=== PATIENT | male | born 1950 | race African-American/Black ===

== ENCOUNTER → 2017-02-27 | Outpatient (CLI) | payer OTHER ==
[2014-04-27 11:25] VITALS: BP 173/77
[~2017-02-27] MED LIST: AMLO10TA4 PO; ATOR10TA PO; FLUT1DIS3 IH; GABA-585 PO; ISOS30TA PO; LEVO5TAB2 PO; LISI40TA PO; MELO15TA23 PO; METO100T11 PO; MONT10TA6 PO; NIAC500T PO; OMEP40CA5 PO; ROPI0.5T PO
--- NOTE | 2017-02-27 12:09 | RAD ---
Indication reticula atrophy. Back pain. Duration of symptoms several months. AP oblique and lateral views of the lumbar spine were obtained as well as a coned view targeted to the lumbosacral junction. Note is made of a previous examination 07/08/2013. Pars defects at L5 with grade 1 anterior spondylolisthesis of L5 relative to S1 is noted. In this regard the appearance is similar to the previous exam. There is disc space narrowing at L2-3 with associated degenerative endplate changes and some vacuum disc phenomenon. Some disc narrowing is also seen at L4-5. Vertebral height is well maintained. Small osteophytes are seen at several levels. An acute finding is not seen. IMPRESSION: Pars defects at L5 with associated spondylolisthesis. Degenerative changes predominantly at L2-3 and L45. Degenerative changes have progressed relative to the previous plain film exam. No acute finding seen
--- NOTE | 2017-02-27 14:14 | RAD ---
Indication pain. No history of injury. An AP view of the pelvis was obtained as well as frog-leg views of both hips. Bony mineralization appears normal. There are degenerative changes involving both hips right greater than left. An acute bony finding is not seen. IMPRESSION: Degenerative changes involving both hips right greater than left
== END | disposition home or self-care (01) ==
LOC: DXRADRC 11:22
PROVIDERS: ATTEND Physician Assistant
DX: M16.0 Bilateral primary osteoarthritis of hip (principal); M43.16 Spondylolisthesis, lumbar region; M54.9 Dorsalgia, unspecified
CPT/HCPCS: 72110; 73521

== ENCOUNTER → 2019-02-08 | Outpatient (CLI) | payer MEDICAID ==
[2014-04-27 11:25] VITALS: BP 173/77
[~2019-02-08] MED LIST changes: +METO-247 PO; -METO100T11 PO; -MONT10TA6 PO; +MONT10TA80 PO
--- NOTE | 2019-02-08 16:43 | RAD ---
Right hand, 2 views, 02/08/2019: HISTORY: Hand pain There is severe degenerative change at the first CMC joint with subchondral cyst formation, spurring and periarticular calcifications. There are moderate degenerative changes at the first through third MCP joints. There are mild degenerative changes at scattered interphalangeal joints. No fracture or dislocation is identified. IMPRESSION: 1. Severe degenerative change at the first CMC joint. 2. Mild to moderate additional scattered degenerative changes as described above. Left hand, 2 views, 02/08/2019: There is moderate degenerative change at the first, second and third MCP joints. There are mild degenerative changes at scattered interphalangeal joints and the first CMC joint. No fracture or dislocation is identified. IMPRESSION: Mild to moderate scattered degenerative changes as described above. Electronically signed by: Antonio Steward MD (02/08/2019 4:40 PM) [facility]
--- NOTE | 2019-02-08 16:45 | RAD ---
Abdomen, 2 views, 02/08/2019: HISTORY: Abdominal pain Gas is present in scattered loops of large and small bowel in a nonspecific pattern. There is a moderate amount of stool in the right colon. No free air is seen in the abdomen. There is no evidence organomegaly. Surgical clips are present in the right abdomen. There are mild scattered degenerative changes in the spine. 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 IMPRESSION: No acute abdominal abnormality is detected. Electronically signed by: Antonio Steward MD (02/08/2019 4:42 PM) [facility]
== END | disposition home or self-care (01) ==
LOC: PMG 12:36
PROVIDERS: ATTEND Physician Assistant
DX: M16.0 Bilateral primary osteoarthritis of hip (principal); M19.041 Primary osteoarthritis, right hand; M19.042 Primary osteoarthritis, left hand; M18.12 Unilateral primary osteoarthritis of first carpometacarpal joint, left hand; M47.819 Spondylosis without myelopathy or radiculopathy, site unspecified
CPT/HCPCS: 73120; 74019

== ENCOUNTER → 2019-06-29 | Outpatient (CLI) | payer MEDICAID ==
[2014-04-27 11:25] VITALS: BP 173/77
[~2019-06-29] MED LIST changes: +OMEP40CA45 PO; -OMEP40CA5 PO
--- NOTE | 2019-06-29 12:14 | RAD ---
EXAM: Chest, 2 views. HISTORY: Chest pain. COMPARISON: None. FINDINGS: 2 views of the chest are obtained. There is no infiltrate, pleural effusion or pneumothorax. The heart is normal in size. There is evidence of prior median sternotomy. There are few calcified granulomas. There is suspected linear atelectasis or scarring within the lingula and right middle lobe. IMPRESSION: No acute pulmonary finding. Electronically signed by: Pati Holguin MD (06/29/2019 12:10 PM) [place] [id number]
== END | disposition home or self-care (01) ==
LOC: PMG 10:32
PROVIDERS: ATTEND Physician Assistant
DX: J84.10 Pulmonary fibrosis, unspecified (principal)
CPT/HCPCS: 71046

== ENCOUNTER → 2020-02-03 | Outpatient (CLI) | payer MEDICAID ==
[2014-04-27 11:25] VITALS: BP 173/77
[~2020-02-03] MED LIST changes: +IOHEXOL 240 MG/ML 50ML VIAL. ONE; +IOHEXOL 240 MG/ML 50ML VIAL. PO ONE; +IOHEXOL 300 MG/ML 75 ML VIAL. IV ONE
[2020-02-03 13:28] LABS: BASO % 1 % (0-3); EOS # 0.2 x10^3/uL (0.0-0.7); EOS % 3 % (0-3); HEMATOCRIT 38.5 % (39.0-53.0); HEMOGLOBIN 12.6 g/dL (13.0-17.5); LYMPH # 2.1 x10^3/uL (1.0-4.8); LYMPH % 37 % (24-48); MEAN CORPUSCULAR HEMOGLOBIN 29 pg (25-35); MEAN CORPUSCULAR HGB CONC 33 g/dL (31-37); MEAN CORPUSCULAR VOLUME 88 fL (79-100); MONO # 0.5 x10^3/uL (0.0-1.1); MONO % 9 % (0-9); NEUT % 51 % (31-73); PLATELET COUNT 287 x10^3/uL (140-400); RED BLOOD COUNT 4.37 x10^6/uL (4.30-5.70); RED CELL DISTRIBUTION WIDTH 14.8 % (11.5-14.5); WHITE BLOOD COUNT 5.8 x10^3/uL (4.0-11.0)
[2020-02-03 13:36] LABS: ALBUMIN 3.9 g/dL (3.4-5.0); ALBUMIN/GLOBULIN RATIO 1.1 (1.0-1.7); CALCIUM 8.8 mg/dL (8.5-10.1); CREATININE 1.1 mg/dL (0.7-1.3); GFR 80.3; POTASSIUM 4.2 mmol/L (3.5-5.1); TOTAL BILIRUBIN 0.6 mg/dL (0.2-1.0); TOTAL PROTEIN 7.6 g/dL (6.4-8.2)
[2020-02-03 14:42] LABS: C REACTIVE PROTEIN 22.4 mg/L (0-3.3)
--- NOTE | 2020-02-03 15:09 | RAD ---
CT scan of the abdomen and pelvis with contrast 02/03/2020 CLINICAL HISTORY: Abdominal pain. TECHNIQUE: After the oral and intravenous administration of contrast, contiguous, 5 mm axial sections were obtained through the abdomen and pelvis. 75 cc of Omnipaque 350 were administered intravenously this examination. One or more of the following individualized dose reduction techniques were utilized for this study: 1. Automated exposure control. 2. Adjustment of the mA and/or kV according to patient size. 3. Use of iterative reconstruction technique. FINDINGS: Comparison study is dated 05/15/2016. Images through the lung bases demonstrate minimal dependent subsegmental atelectasis bilaterally. A 5 mm calcified granuloma is seen involving the lingula. Images through the lung bases demonstrate minimal dependent subsegmental atelectasis bilaterally. The liver, spleen, pancreas, adrenal glands and kidneys are within normal limits. Atherosclerotic calcification of the abdominal aorta is seen. The abdominal aorta tapers normally. Surgical clips are seen within the gallbladder fossa consistent with a cholecystectomy. No free fluid or free air is seen within the abdomen. There is no evidence of bowel obstruction. The appendix is well-visualized and is within normal limits. Images through the pelvis demonstrate the urinary bladder distended with urine. The prostate gland is enlarged likely related to BPH. Scattered diverticula are seen involving the sigmoid colon. No inflammatory changes are seen in the adjacent fat. No free fluid is seen. Very mild S-shaped curvature of the thoracolumbar spine is noted. Degenerative changes are seen involving lower thoracic and throughout the lumbar spine along with both hips. Bilateral spondylolysis is seen at L5. Grade 1 spondylolisthesis of L5 in relation to S1 is noted. IMPRESSION: No acute abnormality is seen. Electronically signed by: Quang Pisano MD (02/03/2020 3:06 PM) [id number]
== END ==
LOC: CT 12:31
PROVIDERS: ATTEND Physician Assistant
DX: K57.30 Diverticulosis of large intestine without perforation or abscess without bleeding (principal); I70.0 Atherosclerosis of aorta; J98.11 Atelectasis; M47.816 Spondylosis without myelopathy or radiculopathy, lumbar region; M43.17 Spondylolisthesis, lumbosacral region; N40.0 Benign prostatic hyperplasia without lower urinary tract symptoms; Z90.49 Acquired absence of other specified parts of digestive tract
CPT/HCPCS: 36415; 74177; 80053; 82150; 83690; 85025; 86140; Q9966; Q9967

== ENCOUNTER 2020-06-26 12:00 | Emergency (ER) | payer MEDICAID ==
[~2020-06-26] VITALS: Ht 165.1 cm; Wt 92.0 kg
[~2020-06-26 12:00] MED LIST changes: -IOHEXOL 240 MG/ML 50ML VIAL. ONE; -IOHEXOL 240 MG/ML 50ML VIAL. PO ONE; -IOHEXOL 300 MG/ML 75 ML VIAL. IV ONE
[2020-06-26] MEDS ORDERED: ACETAMINOPHEN 500 MG TABLET PO ONE ×2 (12:23→12:30)
[2020-06-26] MEDS ORDERED: IV NORMAL SALINE 1,000ML 1,000 ML IV ONE (12:30)
[2020-06-26] MEDS ORDERED: ONDANSETRON PF 4 MG/2 ML VIAL. IVP ONE (12:30)
--- NOTE | 2020-06-26 12:55 | RAD ---
AP chest. HISTORY: Short of breath AP view was taken of the chest. There are bilateral hazy infiltrates. Patient's had previous sternotomy. The heart is not enlarged. There is no pleural effusion. IMPRESSION: 1. Bilateral hazy mainly basilar infiltrates. Electronically signed by: Panda Gilmore MD (06/26/2020 12:52 PM) [id number]
--- NOTE | 2020-06-26 13:07 | PHYS DOC ---
Past History Past Medical History: Other Past Surgical History: Other Smoking: Quit Greater Than 1 Year Alcohol Use: None Drug Use: None General Adult EDM: Chief Complaint: SHORTNESS OF BREATH HPI: HPI: 70-year-old male presents with cough and shortness of breath. Patient has had the symptoms for the last 6 days. It has been getting worse last couple days. He went to see his primary care physician upstairs in this building and he was found to have temperature and sent to the emergency room. The patient has been trying to stay home most of the time, but has grandchildren who have not altered her lifestyle. No confirmed COVID-19 exposures. Patient has a history of heart issues. He had open heart surgery of some kind. He does not know what medications he is on. No COPD diagnosis. He does not normally use oxygen. On arrival his oxygen saturation was in the low 80s. Review of Systems: Review of Systems: Constitutional: Denies fever or chills Eyes: Denies change in visual acuity HENT: Denies nasal congestion or sore throat Respiratory: Cough with shortness of breath Cardiovascular: Denies chest pain or edema GI: Denies abdominal pain, nausea, vomiting, bloody stools or diarrhea : Denies dysuria Musculoskeletal: Denies back pain or joint pain Integument: Denies rash Neurologic: Denies headache, focal weakness or sensory changes Endocrine: Denies polyuria or polydipsia Lymphatic: Denies swollen glands Psychiatric: Denies depression or anxiety Current Medications: Current Meds: Current Medications Medications (Trade) Dose Ordered Sig/[facility] Start Time Stop Time Status Last Admin Dose Admin Acetaminophen (Tylenol) 1,000 mg 1X ONCE 06/26/20 12:30 06/26/20 12:41 DC Ondansetron HCl (Zofran) 4 mg 1X ONCE 06/26/20 12:30 06/26/20 12:41 DC Sodium Chloride 1,000 ml @ 1,000 mls/hr 1X ONCE 06/26/20 12:30 06/26/20 13:29 Allergies: Allergies: Allergies Coded Allergies Type Severity Reaction Last Updated Verified No Known Drug Allergies 02/03/20 No Physical Exam: PE: Constitutional: Well developed, well nourished, mild acute distress. [] HENT: Normocephalic, atraumatic, bilateral external ears normal, oropharynx moist, no oral exudates, nose normal. [] Eyes: PERRLA, EOMI, conjunctiva normal, no discharge. [] Neck: Normal range of motion, no tenderness, supple, no stridor. [] Cardiovascular: Heart rate regular rhythm, no murmur [] Lungs & Thorax: Bilateral breath sounds coarse. [] Abdomen: Bowel sounds normal, soft, no tenderness, no masses, no pulsatile masses. [] Skin: Warm, dry, no erythema, no rash. [] Back: No tenderness, no CVA tenderness. [] Extremities: No tenderness, no cyanosis, no clubbing, ROM intact, no edema. [] Neurologic: Alert and oriented X 3, normal motor function, normal sensory function, no focal deficits noted. [] Psychologic: Affect normal, judgement normal, mood normal. [] EKG: EKG: Sinus rhythm, rate 94, leftward axis, no ST elevations or depressions, inverted T waves is V2 through V6. [] Radiology/Procedures: Radiology/Procedures: [] Impressions: AP chest. HISTORY: Short of breath AP view was taken of the chest. There are bilateral hazy infiltrates. Patient's had previous sternotomy. The heart is not enlarged. There is no pleural effusion. IMPRESSION: 1. Bilateral hazy mainly basilar infiltrates. Electronically signed by: Lucas Gilmore MD (06/26/2020 12:52 PM) [id number] DICTATED AND SIGNED BY: LUCAS GILMORE MD DATE: 06/26/20 1252 CC: FANI MADDOX DO; MICHAEL BYRNE PA ~ Heart Score: Risk Factors: Risk Factors: DM, Current or recent (<one month) smoker, HTN, HLP, family history of CAD, obesity. Risk Scores: Score 0 - 3: 2.5% MACE over next 6 weeks - Discharge Home Score 4 - 6: 20.3% MACE over next 6 weeks - Admit for Clinical Observation Score 7 - 10: 72.7% MACE over next 6 weeks - Early Invasive Strategies Course & Med Decision Making: Course & Med Decision Making Pertinent Labs and Imaging studies reviewed. (See chart for details) On arrival the patient's temperature is 102.4. We gave him a gram of Tylenol. We will also start him on 1 L of fluids as COVID-19 seems likely. The 30 mL/kg of ideal body weight is not indicated for this scenario. His chest x-ray suggests bilateral pneumonia. I will treat him with Rocephin and azithromycin. The patient will need admitted to the hospital. I spoke with Dr. Aguiar, our hospitalist and he believes the patient will be better served and higher level of care. I spoke with the hospitalist, Dr. Alfaro at [facility] and he has accepted the patient for transfer and admission. He will go to the COVID-19 floor. 52 minutes of critical care time was spent on this patient exclusive of other billable procedures. [] Dragon Disclaimer: Dragon Disclaimer: This electronic medical record was generated, in whole or in part, using a voice recognition dictation system. Departure Departure: Impression: Primary Impression: Suspected 2019 novel coronavirus infection Additional Impression: Hypoxia Disposition: 02 DC/TRF OTHER SHORT TERM HOS Condition: GUARDED Referrals: MICHAEL BYRNE (PCP) Sepsis Assessment: Date and Time of Assessment Date: Jun 26, 2020 Time: 12:10 Vital Signs Vital Signs Vital Signs Date Time Temp Pulse Resp B/P (MAP) Pulse Ox O2 Delivery O2 Flow Rate FiO2 06/26/20 13:44 88 24 127/59 (81) 97 Nasal Cannula 5.0 06/26/20 12:54 102.4 Respirations Respiratory Effort: Shortness of air Respiratory Pattern: Tachypnea Cardiovascular Pulse Rhythm: Regular HEART: S1 and S2 normal Lung Sounds Breath Sounds: Coarse Capillary Refill Capillary Refill: Rt Hand < 3 seconds Peripheral Pulse Pulse Location: Monitor Pulse Strength: Normal (2+) Pulse Assessment Method: Monitor Integumentary Skin: Warm Skin Moisture: Dry Skin Turgor: Normal Skin Color: no erythema Fingernail Color: WNL Sepsis Assessment: Date and Time of Assessment Date: Jun 26, 2020 Time: 14:06 Vital Signs Vital Signs Vital Signs Date Time Temp Pulse Resp B/P (MAP) Pulse Ox O2 Delivery O2 Flow Rate FiO2 06/26/20 13:44 88 24 127/59 (81) 97 Nasal Cannula 5.0 06/26/20 12:54 102.4 Respirations Respiratory Effort: Shortness of air Respiratory Pattern: Normal Cardiovascular Pulse Rhythm: Regular HEART: S1 and S2 normal Lung Sounds Breath Sounds: Coarse Capillary Refill Capillary Refill: Rt Hand < 3 seconds Peripheral Pulse Pulse Location: Monitor Pulse Strength: Normal (2+) Pulse Assessment Method: Monitor Integumentary Skin: Warm Skin Moisture: Dry Skin Turgor: Normal Skin Color: no erythema Fingernail Color: FANI TAMAYO DO Jun 26, 2020 13:07
[2020-06-26 13:13] LABS: BASO % 0 % (0-3); EOS % 0 % (0-3); HEMATOCRIT 38.9 % (39.0-53.0); HEMOGLOBIN 12.5 g/dL (13.0-17.5); LYMPH # 0.7 x10^3/uL (1.0-4.8); LYMPH % 12 % (24-48); MEAN CORPUSCULAR HEMOGLOBIN 28 pg (25-35); MEAN CORPUSCULAR HGB CONC 32 g/dL (31-37); MEAN CORPUSCULAR VOLUME 88 fL (79-100); MONO # 0.3 x10^3/uL (0.0-1.1); MONO % 6 % (0-9); NEUT # 4.7 x10^3uL (1.8-7.7); NEUT % 82 % (31-73); PLATELET COUNT 147 x10^3/uL (140-400); RED BLOOD COUNT 4.41 x10^6/uL (4.30-5.70); RED CELL DISTRIBUTION WIDTH 14.5 % (11.5-14.5); WHITE BLOOD COUNT 5.7 x10^3/uL (4.0-11.0)
[2020-06-26 13:20] LABS: CALCIUM 8.9 mg/dL (8.5-10.1); CREATININE 1.4 mg/dL (0.7-1.3); GFR 60.6; POTASSIUM 3.7 mmol/L (3.5-5.1)
[2020-06-26 13:35] LABS: ALBUMIN 3.2 g/dL (3.4-5.0); ALBUMIN/GLOBULIN RATIO 0.6 (1.0-1.7); TOTAL BILIRUBIN 0.5 mg/dL (0.2-1.0); TOTAL PROTEIN 8.2 g/dL (6.4-8.2)
[2020-06-26] MEDS ORDERED: AZITHROMYCIN 500 MG in IV NORMAL SALINE 250ML 250 ML IV ONE (14:15)
[2020-06-26] MEDS ORDERED: cefTRIAXone SODIUM 1 GM VIAL ONE (14:16)
[2020-06-26] MEDS ORDERED: IV NORMAL SALINE 50ML 50 ML ONE (14:16)
[2020-06-26] MEDS ORDERED: IV NORMAL SALINE 250ML 250 ML ONE (14:17)
[2020-06-26] MEDS ORDERED: AZITHROMYCIN 500 MG VIAL. IV ONE (14:17)
[2020-06-26 15:14] VITALS: BP 128/56
--- NOTE | 2020-06-26 15:35 | EKG ---
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
--- NOTE | 2020-06-28 09:58 | NUR ---
IP: notified IP at [facility] of COVID results.
== END 2020-06-26 15:40 | disposition short-term general hospital (02) ==
LOC: ER 12:00
DX: U07.1 COVID-19 (principal); R09.02 Hypoxemia; Z87.891 Personal history of nicotine dependence
CPT/HCPCS: 36415; 71045; 80053; 82803; 83605; 84484; 85025; 87040; 93005; 96361; 96365; 96375; 99285; C9803; J0456; J0696; J2405; J7030; J7050; U0003; 99291-25